=== PATIENT | male | born 1965 | race Caucasian/White ===

== ENCOUNTER 2020-01-25 13:16 | Emergency (ER) | payer BC, MEDICAID ==
[~2020-01-25] VITALS: Ht 185.4 cm; Wt 100.0 kg
[~2020-01-25 13:16] MED LIST: ASPI-1265 PO; ATOR20TA66 PO; GLIP5TAB13 PO; LISI10TA4 PO; METF-436 PO
[2020-01-25] MEDS ORDERED: vancomycin/NS 1 GM ADD-VANTAGE 250 ML IV ONE (17:45)
[2020-01-25] MEDS ORDERED: normal saline 1000ML IV soln IV ONE (17:45)
[2020-01-25] MEDS ORDERED: acetaminophen 1,000mg/100ml IV 100 ML IV ONE (17:45)
[2020-01-25] MEDS ORDERED: CefTRIAXone 2gm/D5W 50ml BAG 50 ML IV ONE (17:45)
[2020-01-25 18:23] LABS: MEAN PLATELET VOLUME 7.3 FL (7.4-10.4); WHITE BLOOD COUNT 9.3 X10'3 (4.5-11.0)
[2020-01-25 18:25] LABS: BASOPHILS # (AUTO) 0.1 X10'3 (0-0.2); BASOPHILS % (AUTO) 0.6 % (0-1); EOSINOPHILS # (AUTO) 0.2 X10'3 (0-0.9); EOSINOPHILS % (AUTO) 2.3 % (0-6); HEMOGLOBIN 13.1 g/dl (14.0-17.9); LYMPHOCYTES % (AUTO) 10.7 % (21-51); MEAN CORPUSCULAR HEMOGLOBIN 28.1 PG (27.0-31.0); MEAN CORPUSCULAR HGB CONC 33.6 g/dL (33.0-36.5); MEAN CORPUSCULAR VOLUME 83.7 FL (78-98); MONOCYTES # (AUTO) 0.8 X10'3 (0-0.9); MONOCYTES % (AUTO) 8.5 % (2-12); NEUTROPHILS # (AUTO) 7.3 X10'3 (1.8-7.7); NEUTROPHILS % (AUTO) 77.9 % (42-75); PLATELET COUNT 270 X10'3 (140-440); RED BLOOD COUNT 4.66 X10'6 (4.70-6.10); RED CELL DISTRIBUTION WIDTH 13.3 % (11.5-14.5)
[2020-01-25 18:36] LABS: ALANINE AMINOTRANSFERASE 27 U/L (12-78); ALBUMIN 3.3 G/DL (3.4-5.0); ALBUMIN/GLOBULIN RATIO 0.7 (1.1-1.5); ALKALINE PHOSPHATASE 101 IU/L (46-116); ANION GAP 4 (8-16); ASPARTATE AMINO TRANSFERASE 18 U/L (10-37); BILIRUBIN,TOTAL 0.9 MG/DL (0.1-1.0); BLOOD UREA NITROGEN 11 MG/DL (7-18); BUN/CREATININE RATIO 9.6 (5.4-32.0); CALCIUM 8.8 MG/DL (8.5-10.1); CHLORIDE 108 MMOL/L (99-107); CREATININE 1.15 MG/DL (0.60-1.10); GLUCOSE 154 MG/DL (70-104); POTASSIUM 3.9 MMOL/L (3.5-5.1); SODIUM 142 MMOL/L (135-145); TOTAL CARBON DIOXIDE 30.1 MMOL/L (24-32); TOTAL PROTEIN 8.3 G/DL (6.4-8.2); eGFR 66 ML/MIN
[2020-01-25] MEDS ORDERED: acetaminophen 325mg tablet PO ONE (18:55)
[2020-01-25] MEDS ORDERED: piperacillin/tazo 4.5gm/100ml 100 ML IV SCH (20:00)
--- NOTE | 2020-01-25 20:07 | NUR ---
pt is unsure on what current medications he is taking. external hx is incomplete and attempted to contact pt son, michael and left voicemail.
[2020-01-25 20:29] LABS: CLARITY,URINE CLEAR (Clear); COLOR,URINE YELLOW (Yellow); GLUCOSE, URINE NEGATIVE (Neg); KETONES,URINE NEGATIVE (Neg); LEUKOCYTE ESTERASE ,URINE NEGATIVE (Neg); NITRITES, URINE NEGATIVE (Neg); OCCULT BLOOD,URINE NEGATIVE (Neg); PH,URINE 5.5 (4.8-8.0); PROTEIN,URINE 100 mg/dl (Neg)
[2020-01-25 20:31] LABS: UA COLLECTION TYPE STRAIGHT CATH
[2020-01-25 20:34] LABS: BACTERIA,URINE FEW /HPF (Neg); RBC,URINE 0-2 /HPF (0-2); SQUAMOUS EPITHELIAL CELL,UR NONE SEEN /LPF (FEW); WBC,URINE 0-4 /HPF (0-4)
--- NOTE | 2020-01-25 20:42 | NUR ---
pt is unable to provide urine sample at this time. urinal provided and pt aware to continue trying to provide specimen
[2020-01-25] MEDS ORDERED: CEPH-572 PO (20:57)
[2020-01-25] MEDS ORDERED: SULF1TAB49 PO (20:57)
--- NOTE | 2020-01-25 23:17 | NUR ---
spoke with pt son michael who is on his way to tack picker pt. will be here shortly with clean clothes
[2020-01-26 00:22] VITALS: BP 132/87
== END 2020-01-26 00:26 | disposition home or self-care (01) ==
LOC: ER 13:17
DX: L03.116 Cellulitis of left lower limb (principal); L03.115 Cellulitis of right lower limb; Z20.828 Contact with and (suspected) exposure to other viral communicable diseases; M79.671 Pain in right foot; M79.672 Pain in left foot; E11.42 Type 2 diabetes mellitus with diabetic polyneuropathy; J45.909 Unspecified asthma, uncomplicated; F17.200 Nicotine dependence, unspecified, uncomplicated; Z86.73 Personal history of transient ischemic attack (TIA), and cerebral infarction without residual deficits; Z72.89 Other problems related to lifestyle; Z88.8 Allergy status to other drugs, medicaments and biological substances; Z79.82 Long term (current) use of aspirin; Z79.2 Long term (current) use of antibiotics
CPT/HCPCS: 36415; 71045; 73590; 73620; 80053; 81001; 83605; 83735; 84145; 85025; 87040; 87635; 93005; 96365; 96367; 96375; 99285; C9803; J0696; J2543; J3370; J7030

== ENCOUNTER 2020-03-04 14:10 | Emergency (ER) | payer MEDICAID ==
[~2020-03-04] VITALS: Ht 182.9 cm; Wt 100.0 kg
[2020-03-04 15:19] LABS: BASOPHILS % (AUTO) 0.5 % (0-1); EOSINOPHILS # (AUTO) 0.4 X10'3 (0-0.9); EOSINOPHILS % (AUTO) 4.5 % (0-6); HEMATOCRIT 38.2 % (42.0-52.0); HEMOGLOBIN 12.9 g/dl (14.0-17.9); LYMPHOCYTES # (AUTO) 0.8 X10'3 (1.1-4.8); LYMPHOCYTES % (AUTO) 8.3 % (21-51); MEAN CORPUSCULAR HEMOGLOBIN 27.9 PG (27.0-31.0); MEAN CORPUSCULAR HGB CONC 33.7 g/dL (33.0-36.5); MEAN CORPUSCULAR VOLUME 82.9 FL (78-98); MEAN PLATELET VOLUME 7.9 FL (7.4-10.4); MONOCYTES # (AUTO) 0.8 X10'3 (0-0.9); MONOCYTES % (AUTO) 8.1 % (2-12); NEUTROPHILS # (AUTO) 7.4 X10'3 (1.8-7.7); NEUTROPHILS % (AUTO) 78.6 % (42-75); PLATELET COUNT 233 X10'3 (140-440); RED BLOOD COUNT 4.61 X10'6 (4.70-6.10); RED CELL DISTRIBUTION WIDTH 14.1 % (11.5-14.5); WHITE BLOOD COUNT 9.4 X10'3 (4.5-11.0)
[2020-03-04 15:27] LABS: ALANINE AMINOTRANSFERASE 29 U/L (12-78); ALBUMIN 3.2 G/DL (3.4-5.0); ALBUMIN/GLOBULIN RATIO 0.7 (1.1-1.5); ALKALINE PHOSPHATASE 79 IU/L (46-116); ANION GAP 11 (8-16); ASPARTATE AMINO TRANSFERASE 26 U/L (10-37); BILIRUBIN,TOTAL 1.2 MG/DL (0.1-1.0); BLOOD UREA NITROGEN 18 MG/DL (7-18); CALCIUM 8.8 MG/DL (8.5-10.1); CHLORIDE 108 MMOL/L (99-107); GLUCOSE 128 MG/DL (70-104); POTASSIUM 3.8 MMOL/L (3.5-5.1); SODIUM 145 MMOL/L (135-145); TOTAL CARBON DIOXIDE 25.9 MMOL/L (24-32); TOTAL PROTEIN 7.7 G/DL (6.4-8.2); eGFR 62 ML/MIN
--- NOTE | 2020-03-04 15:33 | NUR ---
Adryan (Pt's Son)-[phone] Pt states last time we were unable to call him from ER phones and we had to call from a personal cell phone. NE[employer]OR
--- NOTE | 2020-03-04 16:20 | NUR ---
called [phone] per patient,transportation eta "about an hour" per friend Lianne.
[2020-03-04 17:42] VITALS: BP 143/82
== END 2020-03-04 17:45 | disposition home or self-care (01) ==
LOC: ER 14:11
DX: R53.1 Weakness (principal); R53.2 Functional quadriplegia; I89.1 Lymphangitis; I87.8 Other specified disorders of veins; J45.909 Unspecified asthma, uncomplicated; E11.42 Type 2 diabetes mellitus with diabetic polyneuropathy; I89.0 Lymphedema, not elsewhere classified; Z86.73 Personal history of transient ischemic attack (TIA), and cerebral infarction without residual deficits; Z72.89 Other problems related to lifestyle; Z91.041 Radiographic dye allergy status; Z79.82 Long term (current) use of aspirin; Z79.899 Other long term (current) drug therapy
CPT/HCPCS: 36415; 80053; 82948; 85025; 85651; 93005; 99284

== ENCOUNTER 2020-04-30 14:29 | Inpatient (IN) | payer MEDICAID ==
[~2020-04-30] VITALS: Ht 185.4 cm; Wt 93.0 kg
[~2020-04-30 14:29] MED LIST changes: +LISI10TA27 PO; -LISI10TA4 PO
[2020-04-30] MEDS ORDERED: normal saline 1000ML IV soln IVB ONE (15:05)
[2020-04-30 15:29] LABS: BASOPHILS % (AUTO) 0.4 % (0-1); EOSINOPHILS # (AUTO) 0.1 X10'3 (0-0.9); EOSINOPHILS % (AUTO) 1.3 % (0-6); HEMATOCRIT 37.3 % (42.0-52.0); HEMOGLOBIN 12.3 g/dl (14.0-17.9); LYMPHOCYTES # (AUTO) 0.8 X10'3 (1.1-4.8); LYMPHOCYTES % (AUTO) 6.9 % (21-51); MEAN CORPUSCULAR HEMOGLOBIN 27.5 PG (27.0-31.0); MEAN CORPUSCULAR HGB CONC 32.9 g/dL (33.0-36.5); MEAN CORPUSCULAR VOLUME 83.7 FL (78-98); MEAN PLATELET VOLUME 7.4 FL (7.4-10.4); MONOCYTES # (AUTO) 0.8 X10'3 (0-0.9); MONOCYTES % (AUTO) 7.4 % (2-12); NEUTROPHILS # (AUTO) 9.2 X10'3 (1.8-7.7); PLATELET COUNT 207 X10'3 (140-440); RED BLOOD COUNT 4.45 X10'6 (4.70-6.10); RED CELL DISTRIBUTION WIDTH 14.7 % (11.5-14.5)
[2020-04-30 15:41] LABS: ALANINE AMINOTRANSFERASE 26 U/L (12-78); ALBUMIN 3.4 G/DL (3.4-5.0); ALBUMIN/GLOBULIN RATIO 0.8 (1.1-1.5); ALKALINE PHOSPHATASE 84 IU/L (46-116); ANION GAP 7 (8-16); ASPARTATE AMINO TRANSFERASE 39 U/L (10-37); BILIRUBIN,TOTAL 0.9 MG/DL (0.1-1.0); BLOOD UREA NITROGEN 16 MG/DL (7-18); BUN/CREATININE RATIO 15.1 (5.4-32.0); CALCIUM 9.5 MG/DL (8.5-10.1); CHLORIDE 112 MMOL/L (99-107); CREATININE 1.06 MG/DL (0.60-1.10); GLUCOSE 115 MG/DL (70-104); POTASSIUM 3.4 MMOL/L (3.5-5.1); SODIUM 148 MMOL/L (135-145); TOTAL CARBON DIOXIDE 29.4 MMOL/L (24-32); TOTAL PROTEIN 7.7 G/DL (6.4-8.2); eGFR 72 ML/MIN
[2020-04-30 15:46] LABS: ETHANOL < 0.010 GM/DL (0.0-0.010); TROPONIN I 0.04 NG/ML (0.0-0.05)
[2020-04-30 16:19] LABS: CLARITY,URINE CLEAR (Clear); COLOR,URINE YELLOW (Yellow); GLUCOSE, URINE NEGATIVE (Neg); KETONES,URINE NEGATIVE (Neg); LEUKOCYTE ESTERASE ,URINE NEGATIVE (Neg); NITRITES, URINE NEGATIVE (Neg); OCCULT BLOOD,URINE TRACE-INTACT (Neg); PH,URINE 6.5 (4.8-8.0); PROTEIN,URINE 100 mg/dl (Neg)
--- NOTE | 2020-04-30 16:24 | NUR ---
Vimal Cornelius [phone]
[2020-04-30 16:34] LABS: UA COLLECTION TYPE STRAIGHT CATH
[2020-04-30 16:37] LABS: URINE AMPHETAMINE SCREEN NEGATIVE (Neg); URINE BARBITUATE SCREEN NEGATIVE (Neg); URINE BENZODIAZEPINES SCREEN NEGATIVE (Neg); URINE CANNABINOID SCREEN NEGATIVE (Neg); URINE COCAINE SCREEN NEGATIVE (Neg); URINE METHADONE SCREEN NEGATIVE (Neg); URINE OPIATE SCREEN NEGATIVE (Neg); URINE PHENCYCLIDINE SCREEN NEGATIVE (Neg)
[2020-04-30 16:38] LABS: RBC,URINE 0-2 /HPF (0-2); WBC,URINE 0-4 /HPF (0-4)
[2020-04-30 16:39] LABS: SQUAMOUS EPITHELIAL CELL,UR FEW /LPF (FEW)
[2020-04-30 16:42] LABS: BACTERIA,URINE FEW /HPF (Neg)
--- NOTE | 2020-04-30 19:19 | NUR ---
UPDATED PT SON OF PLAN OF CARE AND VISITING HOURS. ALL QUESTIONS ANSWERED.
[2020-04-30] MEDS ORDERED: magnesium 4gm in 100ml NS 100 ML IV PRN (20:50)
[2020-04-30] MEDS ORDERED: diphenhydrAMINE 25mg capsule PO PRN (20:50)
[2020-04-30] MEDS ORDERED: magnesium hydroxide 30ml (MOM) UD suspension PO PRN (20:50)
[2020-04-30] MEDS ORDERED: magnesium Cl slow-release 64mg tablet PO PRN (20:50)
[2020-04-30] MEDS ORDERED: diphenhydrAMINE 50 mg/ml inj IV PRN (20:50)
[2020-04-30] MEDS ORDERED: potassium Cl 20 mEq SR tablet PO PRN ×2 (20:50)
[2020-04-30] MEDS ORDERED: morphine 2 MG/ML inj. syringe IV PRN ×2 (20:50)
[2020-04-30] MEDS ORDERED: magnesium 2GM in 50ml NS 50 ML IV PRN (20:50)
[2020-04-30] MEDS ORDERED: LIDOcaine 2% 10ml TOPICAL JELLY (Urojet) TP ONE (20:50)
[2020-04-30] MEDS ORDERED: bisacodyl 10mg suppository rectal RC PRN (20:50)
[2020-04-30] MEDS ORDERED: acetaminophen 325mg tablet PO PRN ×2 (20:50)
[2020-04-30] MEDS ORDERED: HYDROcodone/acetaminophen 5mg/325mg tablet PO PRN (20:50)
[2020-04-30] MEDS ORDERED: ondansetron/PF 4mg/2ml inj IV PRN (20:50)
[2020-04-30] MEDS ORDERED: potassium Cl 40MEQ/1/2NS 520ml 520 ML IV PRN ×2 (20:50)
[2020-04-30] MEDS ORDERED: mag hydrox/Alum hydrox/simeth 30ml oral suspension PO PRN (20:50)
[2020-04-30] MEDS ORDERED: MESSAGE TO PHARMACY PO ONE (20:55)
[2020-04-30] MEDS ORDERED: dextrose ORAL solution 15 GM/59 ML bottle PO PRN ×2 (20:55)
[2020-04-30] MEDS ORDERED: glucagon, human recombinant 1mg kit SUBCUT PRN (20:55)
[2020-04-30] MEDS ORDERED: insulin Lispro (HumaLOG) vial - multi-dose SQ SCH (20:55)
[2020-04-30] MEDS ORDERED: dextrose 50%-water 50ml dispensing syringe IV PRN ×2 (20:55)
[2020-04-30] MEDS ORDERED: temazepam 15mg capsule PO PRN (21:00)
[2020-04-30 21:12] LABS: HEMOGLOBIN A1C 5.4 % (4.5-6.2)
[2020-04-30] MEDS ORDERED: GABA300C PO (21:26)
[2020-04-30] MEDS ORDERED: LOSA25TA96 PO (21:26)
[2020-04-30] MEDS ORDERED: GLIP5TAB13 PO (21:26)
[2020-04-30] MEDS ORDERED: AMLO2.5T2 PO (21:26)
[2020-04-30] MEDS ORDERED: METF500T PO (21:26)
[2020-04-30] MEDS ORDERED: ATOR20TA PO (21:26)
[2020-04-30] MEDS ORDERED: ASPI-1265 PO (21:26)
--- NOTE | 2020-04-30 21:27 | NUR ---
[facility] worker [phone] Andres
[2020-04-30 21:31] LABS: C-REACTIVE PROTEIN 0.82 MG/DL (0.0-0.5); MAGNESIUM 1.9 MG/DL (1.5-2.4); PHOSPHORUS 2.8 MG/DL (2.3-4.5)
[2020-04-30 21:33] LABS: CREATINE KINASE 1248 U/L (39-308)
[2020-04-30 21:41] LABS: PARTIAL THROMBOPLASTIN TIME 28 SECONDS (22-32)
[2020-04-30 21:59] LABS: HIV ANTIBODY 1&2 RAPID NON-REACTIVE (Neg)
--- NOTE | 2020-04-30 22:35 | NUR ---
Patient in room ED 13 to be transferred to [facility]E 309. I have received report from JOSUE Negro and had the opportunity to ask questions and assume patient care.
--- NOTE | 2020-04-30 22:38 | NUR ---
Pt given juice, happy and alert. Pt refuses thacker cath, Dr. Amato notified, he reports ok to hold thacker unless pt can not void. Floor RN notified.
[2020-04-30 22:45] VITALS: BP 161/83
[2020-04-30] MEDS: insulin glargine (Lantus) pen - multi-dose SQ SCH (23:12)
[2020-04-30] MEDS: potassium cl 20mEq in 1/2 NS 1,000 ML IV SCH (23:13)
[2020-05-01 03:00] VITALS: BP 159/77
[2020-05-01 05:58] LABS: BASOPHILS % (AUTO) 0.3 % (0-1); EOSINOPHILS # (AUTO) 0.3 X10'3 (0-0.9); EOSINOPHILS % (AUTO) 4.2 % (0-6); HEMATOCRIT 36.2 % (42.0-52.0); HEMOGLOBIN 12.4 g/dl (14.0-17.9); LYMPHOCYTES # (AUTO) 1.2 X10'3 (1.1-4.8); LYMPHOCYTES % (AUTO) 14.5 % (21-51); MEAN CORPUSCULAR HEMOGLOBIN 28.3 PG (27.0-31.0); MEAN CORPUSCULAR HGB CONC 34.1 g/dL (33.0-36.5); MEAN PLATELET VOLUME 7.6 FL (7.4-10.4); MONOCYTES # (AUTO) 0.7 X10'3 (0-0.9); MONOCYTES % (AUTO) 8.4 % (2-12); NEUTROPHILS % (AUTO) 72.6 % (42-75); PLATELET COUNT 194 X10'3 (140-440); RED BLOOD COUNT 4.37 X10'6 (4.70-6.10); RED CELL DISTRIBUTION WIDTH 14.5 % (11.5-14.5); WHITE BLOOD COUNT 8.3 X10'3 (4.5-11.0)
[2020-05-01 06:26] LABS: ALANINE AMINOTRANSFERASE 27 U/L (12-78); ALBUMIN/GLOBULIN RATIO 0.8 (1.1-1.5); ALKALINE PHOSPHATASE 76 IU/L (46-116); ASPARTATE AMINO TRANSFERASE 50 U/L (10-37); BILIRUBIN,TOTAL 1.2 MG/DL (0.1-1.0); BLOOD UREA NITROGEN 11 MG/DL (7-18); BUN/CREATININE RATIO 13.6 (5.4-32.0); CALCIUM 8.6 MG/DL (8.5-10.1); CHOL/HDL RATIO 2.1 (0.00-4.99); CHOLESTEROL 73 MG/DL (0-200); CREATININE 0.81 MG/DL (0.60-1.10); GLUCOSE 74 MG/DL (70-104); HDL CHOLESTEROL 35 MG/DL (35-60); LDL CHOLESTEROL 33 MG/DL (50-100); MAGNESIUM 1.7 MG/DL (1.5-2.4); TOTAL CARBON DIOXIDE 27.5 MMOL/L (24-32); TRIGLYCERIDES 32 MG/DL (20-135); eGFR > 90 ML/MIN
--- NOTE | 2020-05-01 06:30 | NUR ---
Problems reprioritized. Patient report given, questions answered & plan of care reviewed with JOSUE Alejandra Traveler.
[2020-05-01 07:00] VITALS: BP 143/72
[2020-05-01 07:07] LABS: ANION GAP 9 (8-16); CHLORIDE 110 MMOL/L (99-107); POTASSIUM 3.4 MMOL/L (3.5-5.1); SODIUM 146 MMOL/L (135-145)
--- NOTE | 2020-05-01 07:56 | NUR ---
Calorie count consult: Likely intended to be a DM education consult as pt with T2DM. Current A1c is 5.4%, DM education not warranted. Pt currently on a CHO controlled diet, d/w RN recommendation to advance to regular diet with MD approval given current A1c, BG range 74-115 mg/dL since admit, and lipid panel WNL. Will continue to follow. Addendum: 05/01/20 at [address] Amended: Links added.
[2020-05-01] MEDS ORDERED: heparin, porcine 5000 units/ml vial SQ SCH (08:00)
[2020-05-01] MEDS: K and/or MAG REPLACEMENT MC SCH ×2 (08:00→19:44)
[2020-05-01] MEDS ORDERED: vancomycin/NS 1 GM ADD-VANTAGE 250 ML IV SCH (08:00)
[2020-05-01] MEDS: CefTRIAXone/D5W-Rocephin 1gm 50 ML IV SCH (08:04)
[2020-05-01] MEDS: docusate sod 100mg capsule PO SCH ×2 (08:04→19:33)
[2020-05-01] MEDS: vancomycin/NS 1 GM ADD-VANTAGE 250 ML IV SCH ×3 (08:13→22:48)
[2020-05-01] MEDS: potassium cl 20mEq in 1/2 NS 1,000 ML IV SCH ×2 (08:27→16:50)
[2020-05-01 11:00] VITALS: BP 152/98
[2020-05-01 15:00] VITALS: BP 161/67
--- NOTE | 2020-05-01 15:26 | NUR ---
DM consult: Patient's A1c has already been addressed, see below. Calorie count consult: Likely intended to be a DM education consult as pt with T2DM. Current A1c is 5.4%, DM education not warranted. Pt currently on a CHO controlled diet, d/w RN recommendation to advance to regular diet with MD approval given current A1c, BG range 74-115 mg/dL since admit, and lipid panel WNL. Will continue to follow. Addendum: 05/01/20 at [address] Amended: Links added.
[2020-05-01 16:51] LABS: HEMATOCRIT 37.5 % (42.0-52.0); HEMOGLOBIN 12.5 g/dl (14.0-17.9); MEAN CORPUSCULAR HEMOGLOBIN 27.9 PG (27.0-31.0); MEAN CORPUSCULAR HGB CONC 33.5 g/dL (33.0-36.5); MEAN CORPUSCULAR VOLUME 83.4 FL (78-98); MEAN PLATELET VOLUME 7.2 FL (7.4-10.4); PLATELET COUNT 208 X10'3 (140-440); RED CELL DISTRIBUTION WIDTH 14.7 % (11.5-14.5)
--- NOTE | 2020-05-01 18:00 | NUR ---
Patient in room MED 309. I have received report from JOSUE Smith and had the opportunity to ask questions and assume patient care.
[2020-05-01 19:00] VITALS: BP 156/76
[2020-05-01] MEDS: gabapentin 300mg capsule PO SCH (19:33)
[2020-05-01] MEDS: lactobacillus rhamnosus 10,000 MMU CELLS/CAPSULE PO SCH (19:33)
[2020-05-01] MEDS: mineral oil/petrolatum, white cream 113gm jar TP SCH (19:36)
[2020-05-01] MEDS: atorvastatin 20mg tablet PO SCH (20:10)
[2020-05-01] MEDS: insulin glargine (Lantus) pen - multi-dose SQ SCH (20:11)
[2020-05-01 23:00] VITALS: BP 143/83
[2020-05-02] MEDS: potassium cl 20mEq in 1/2 NS 1,000 ML IV SCH ×3 (01:06→23:31)
[2020-05-02 02:00] VITALS: BP 136/71
[2020-05-02 06:00] VITALS: BP 146/68
--- NOTE | 2020-05-02 06:10 | NUR ---
Patient in room MED 309. I have received report from JOSUE Sullivan and had the opportunity to ask questions and assume patient care.
[2020-05-02] MEDS ORDERED: VANCOMYCIN LEVEL IV ONE (06:30)
--- NOTE | 2020-05-02 06:36 | NUR ---
Problems reprioritized. Patient report given, questions answered & plan of care reviewed with Chelsi RN.
[2020-05-02] MEDS: K and/or MAG REPLACEMENT MC SCH ×2 (08:00→20:00)
[2020-05-02 08:38] LABS: BASOPHILS % (AUTO) 0.4 % (0-1); EOSINOPHILS # (AUTO) 0.4 X10'3 (0-0.9); EOSINOPHILS % (AUTO) 5.3 % (0-6); HEMATOCRIT 38.1 % (42.0-52.0); HEMOGLOBIN 12.7 g/dl (14.0-17.9); LYMPHOCYTES # (AUTO) 0.9 X10'3 (1.1-4.8); LYMPHOCYTES % (AUTO) 11.3 % (21-51); MEAN CORPUSCULAR HEMOGLOBIN 28.2 PG (27.0-31.0); MEAN CORPUSCULAR HGB CONC 33.2 g/dL (33.0-36.5); MEAN CORPUSCULAR VOLUME 85.1 FL (78-98); MEAN PLATELET VOLUME 7.2 FL (7.4-10.4); MONOCYTES # (AUTO) 0.6 X10'3 (0-0.9); MONOCYTES % (AUTO) 7.6 % (2-12); NEUTROPHILS % (AUTO) 75.4 % (42-75); PLATELET COUNT 180 X10'3 (140-440); RED BLOOD COUNT 4.48 X10'6 (4.70-6.10); RED CELL DISTRIBUTION WIDTH 14.8 % (11.5-14.5); WHITE BLOOD COUNT 7.9 X10'3 (4.5-11.0)
[2020-05-02 08:53] LABS: ALANINE AMINOTRANSFERASE 25 U/L (12-78); ALBUMIN/GLOBULIN RATIO 0.8 (1.1-1.5); ALKALINE PHOSPHATASE 75 IU/L (46-116); ANION GAP 7 (8-16); ASPARTATE AMINO TRANSFERASE 36 U/L (10-37); BILIRUBIN,TOTAL 0.7 MG/DL (0.1-1.0); BLOOD UREA NITROGEN 11 MG/DL (7-18); BUN/CREATININE RATIO 13.6 (5.4-32.0); CALCIUM 8.5 MG/DL (8.5-10.1); CHLORIDE 108 MMOL/L (99-107); CREATININE 0.81 MG/DL (0.60-1.10); GLUCOSE 85 MG/DL (70-104); POTASSIUM 3.8 MMOL/L (3.5-5.1); SODIUM 142 MMOL/L (135-145); TOTAL CARBON DIOXIDE 26.6 MMOL/L (24-32); eGFR > 90 ML/MIN
[2020-05-02 08:55] LABS: MAGNESIUM 1.8 MG/DL (1.5-2.4); VANCOMYCIN,TROUGH 16.1 UG/ML (6.0-14.0)
[2020-05-02] MEDS: aspirin 81mg tab.chew PO SCH (09:29)
[2020-05-02] MEDS: CefTRIAXone/D5W-Rocephin 1gm 50 ML IV SCH (09:29)
[2020-05-02] MEDS: lactobacillus rhamnosus 10,000 MMU CELLS/CAPSULE PO SCH ×2 (09:29→20:57)
[2020-05-02] MEDS: gabapentin 300mg capsule PO SCH ×2 (09:30→20:57)
[2020-05-02] MEDS: losartan 50mg tablet PO SCH (09:30)
[2020-05-02] MEDS: amLODIPine 5mg tablet PO SCH (09:30)
[2020-05-02] MEDS: docusate sod 100mg capsule PO SCH ×2 (09:30→20:57)
[2020-05-02] MEDS: mineral oil/petrolatum, white cream 113gm jar TP SCH ×2 (09:31→20:57)
[2020-05-02 11:00] VITALS: BP 105/41
[2020-05-02] MEDS: vancomycin/NS 1 GM ADD-VANTAGE 250 ML IV SCH (11:24)
[2020-05-02 15:00] VITALS: BP 100/62
[2020-05-02 16:41] LABS: A/G RATIO 0.8 (0.7-1.7); ALBUMIN 3.1 g/dL (2.9-4.4); BETA GLOBULIN 1.1 g/dL (0.7-1.3); GAMMA GLOBULIN 1.9 g/dL (0.4-1.8); GLOBULIN, TOTAL 3.8 g/dL (2.2-3.9); M-SPIKE Not Observed g/dL (Not Observed); PROTEIN, TOTAL, SERUM 6.9 g/dL (6.0-8.5)
[2020-05-02 18:00] VITALS: BP 129/50
--- NOTE | 2020-05-02 18:00 | NUR ---
Patient in room MED 309. I have received report from JOSUE Gagnon, and had the opportunity to ask questions and assume patient care.
--- NOTE | 2020-05-02 18:31 | NUR ---
Problems reprioritized. Patient report given, questions answered & plan of care reviewed with JOSUE Noguera.
[2020-05-02] MEDS: atorvastatin 20mg tablet PO SCH (20:57)
[2020-05-02] MEDS: insulin glargine (Lantus) pen - multi-dose SQ SCH (21:00)
[2020-05-02 22:00] VITALS: BP 134/42
[2020-05-03 02:00] VITALS: BP 128/52
--- NOTE | 2020-05-03 06:00 | NUR ---
Problems reprioritized. Patient report given, questions answered & plan of care reviewed with JOSUE Pastor.
--- NOTE | 2020-05-03 06:08 | NUR ---
ORIENTEE documentation: I have reviewed and agree with all interventions, assessments performed and documented by PRITI SALAS.
--- NOTE | 2020-05-03 06:20 | NUR ---
Patient in room MED 309. I have received report from JOSUE Noguera and had the opportunity to ask questions and assume patient care.
[2020-05-03 06:30] VITALS: BP 165/80
[2020-05-03 06:50] LABS: BASOPHILS % (AUTO) 0.5 % (0-1); EOSINOPHILS # (AUTO) 0.3 X10'3 (0-0.9); EOSINOPHILS % (AUTO) 4.3 % (0-6); HEMATOCRIT 33.6 % (42.0-52.0); HEMOGLOBIN 11.6 g/dl (14.0-17.9); LYMPHOCYTES # (AUTO) 1.1 X10'3 (1.1-4.8); LYMPHOCYTES % (AUTO) 15.2 % (21-51); MEAN CORPUSCULAR HEMOGLOBIN 28.3 PG (27.0-31.0); MEAN CORPUSCULAR HGB CONC 34.6 g/dL (33.0-36.5); MEAN CORPUSCULAR VOLUME 81.9 FL (78-98); MEAN PLATELET VOLUME 7.6 FL (7.4-10.4); MONOCYTES # (AUTO) 0.7 X10'3 (0-0.9); MONOCYTES % (AUTO) 9.2 % (2-12); NEUTROPHILS # (AUTO) 5.2 X10'3 (1.8-7.7); NEUTROPHILS % (AUTO) 70.8 % (42-75); PLATELET COUNT 178 X10'3 (140-440); RED CELL DISTRIBUTION WIDTH 14.8 % (11.5-14.5); WHITE BLOOD COUNT 7.3 X10'3 (4.5-11.0)
[2020-05-03 07:15] LABS: ALANINE AMINOTRANSFERASE 26 U/L (12-78); ALBUMIN 2.8 G/DL (3.4-5.0); ALBUMIN/GLOBULIN RATIO 0.7 (1.1-1.5); ALKALINE PHOSPHATASE 70 IU/L (46-116); ANION GAP 10 (8-16); ASPARTATE AMINO TRANSFERASE 23 U/L (10-37); BILIRUBIN,TOTAL 0.6 MG/DL (0.1-1.0); BLOOD UREA NITROGEN 10 MG/DL (7-18); BUN/CREATININE RATIO 10.4 (5.4-32.0); CALCIUM 8.4 MG/DL (8.5-10.1); CHLORIDE 110 MMOL/L (99-107); CREATININE 0.96 MG/DL (0.60-1.10); GLUCOSE 89 MG/DL (70-104); MAGNESIUM 1.8 MG/DL (1.5-2.4); POTASSIUM 3.7 MMOL/L (3.5-5.1); SODIUM 146 MMOL/L (135-145); TOTAL CARBON DIOXIDE 26.1 MMOL/L (24-32); TOTAL PROTEIN 6.7 G/DL (6.4-8.2); eGFR 81 ML/MIN
[2020-05-03] MEDS: K and/or MAG REPLACEMENT MC SCH (08:00)
[2020-05-03] MEDS: lactobacillus rhamnosus 10,000 MMU CELLS/CAPSULE PO SCH (08:48)
[2020-05-03] MEDS: CefTRIAXone/D5W-Rocephin 1gm 50 ML IV SCH (08:48)
[2020-05-03] MEDS: docusate sod 100mg capsule PO SCH (08:49)
[2020-05-03] MEDS: losartan 50mg tablet PO SCH (08:49)
[2020-05-03] MEDS: mineral oil/petrolatum, white cream 113gm jar TP SCH (08:49)
[2020-05-03] MEDS: aspirin 81mg tab.chew PO SCH (08:49)
[2020-05-03] MEDS: amLODIPine 5mg tablet PO SCH (08:49)
[2020-05-03] MEDS: gabapentin 300mg capsule PO SCH (08:49)
[2020-05-03] MEDS: potassium cl 20mEq in 1/2 NS 1,000 ML IV SCH (08:59)
[2020-05-03 11:00] VITALS: BP 156/72
[2020-05-03] MEDS ORDERED: CEPH-585 PO (11:33)
[2020-05-03 14:00] VITALS: BP 140/75
--- NOTE | 2020-05-03 14:40 | NUR ---
DC inst provided to pt & cg. IV DC'd, tip intact. All belongings sent w/pt. WC to front lobby.
[2020-05-03 16:47] LABS: ATYPICAL PANCA <1:20 titer (Neg:<1:20); CYTOPLASMIC (C-ANCA) <1:20 titer (Neg:<1:20); PERINUCLEAR (P-ANCA) <1:20 titer (Neg:<1:20)
[2020-05-03 21:35] LABS: ALDOLASE 12.1 U/L (3.3-10.3)
== END 2020-05-03 18:01 | disposition home health service (06) | DRG 383 ==
LOC: ER 14:30 → ED HOLD 20:46 → UNDOADMIN 20:46 → MED 3N 20:46 → ED HOLD 22:45 → MED 3N 22:45
PROVIDERS: ADMIT Family Medicine; ATTEND Family Medicine
DX: L03.116 Cellulitis of left lower limb (principal); N39.0 Urinary tract infection, site not specified; I11.0 Hypertensive heart disease with heart failure; I50.9 Heart failure, unspecified; Z86.73 Personal history of transient ischemic attack (TIA), and cerebral infarction without residual deficits; Z87.440 Personal history of urinary (tract) infections; E11.65 Type 2 diabetes mellitus with hyperglycemia; E78.5 Hyperlipidemia, unspecified; E11.42 Type 2 diabetes mellitus with diabetic polyneuropathy; Z88.8 Allergy status to other drugs, medicaments and biological substances; F17.210 Nicotine dependence, cigarettes, uncomplicated; L30.9 Dermatitis, unspecified; E87.6 Hypokalemia; E87.0 Hyperosmolality and hypernatremia; M51.36 Other intervertebral disc degeneration, lumbar region; K82.8 Other specified diseases of gallbladder; E86.0 Dehydration; M62.82 Rhabdomyolysis; K62.5 Hemorrhage of anus and rectum; K64.8 Other hemorrhoids; J45.909 Unspecified asthma, uncomplicated; Z79.899 Other long term (current) drug therapy; Z20.822 Contact with and (suspected) exposure to COVID-19
CPT/HCPCS: 36415; 70450; 71045; 72148; 74176; 76700; 80053; 80061; 80202; 80305; 80320; 81001; 82085; 82140; 82550; 82607; 82948; 83036; 83605; 83690; 83735; 83880; 84100; 84145; 84155; 84165; 84443; 84484; 85025; 85027; 85610; 85651; 85730; 86038; 86140; 86256; 86592; 86703; 87040; 87081; 87635; 93005; 96360; 97110; 97116; 97161; 97530; 99285; G0378; J0696; J1644; J1815; J3370; J3480; J7030